=== PATIENT | female | born 1970 | race African-American/Black ===

== ENCOUNTER 2016-05-12 21:40 | Emergency (ER) | payer OTHER ==
--- NOTE | ~2016-05-12 | CR173 ---
[facility] A Service of [facility] RADIOLOGY TEXT RESULTS PATIENT: BRONSON ELLISON LOCATION: CFTX : 70 UNIT #: [id number] AGE: [address]: MANAN العلي APRN SEX: F ORDER DR: [id number] [place], [place] [address] [id number] MR#: [id number] Acc #: [id number] NAME: BRONSON ELLISON : 1970 SEX: F STUDY DATE/TIME: 05/12/2016 20:51 UNIT: CFTX ROOM: STUDY DESCRIPTION: CR Knee 3 Views Rt Attending Physician: Manan العلي Aprn Ordering Physician: Manan العلي Aprn Primary Care Physician: [facility] MEDICAL IMAGING REPORT This report is preliminary unless electronic signature is present EXAM Right knee 3 views, 05/12/2016 HISTORY Knee pain for 1 week. FINDINGS No fracture. Question small joint effusion, otherwise normal. Dictated by... Azael Marmolejo M.D. THIS IS AN ELECTRONICALLY VERIFIED REPORT Azael Marmolejo M.D. at 05/16/2016 4:33 PM TEV/psc TD: 05/13/2016 02:23 JOB #: [id number] MEDICAL IMAGING REPORT COPY
[~2016-05-12 21:40] MED LIST: FLAGYL PO
== END 2016-05-12 21:55 | disposition home or self-care (01) ==
LOC: CFTX 21:40
DX: M25.561 Pain in right knee (principal); F17.210 Nicotine dependence, cigarettes, uncomplicated
CPT/HCPCS: 73562; 99283